=== PATIENT | female | born 1985 | race Two or more races ===

== ENCOUNTER 2024-01-19 16:18 | Emergency (ER) | payer BC, SELFPAY ==
[2024-01-19 16:23] VITALS: BP 144/92
[2024-01-19 16:33] VITALS: BP 110/77
[2024-01-19 17:00] VITALS: BP 103/75
--- NOTE | 2024-01-19 17:30 | ED.GENMED ---
History of Present Illness
General
Chief Complaint: Chest Pain
Time Seen by Provider: 01/19/24 17:13
History of Present Illness
History of Present Illness:
38-year-old female without any significant past medical history presenting for midsternal chest pain. Patient reports around 10 AM she was making breakfast and had episode of chest pain. Reports symptoms lasted about 10 minutes, described as a
pressure. She also reported some tingling to her right arm and right leg. Symptoms have since resolved. Denies any known history of heart problems or significant family history. Denies any history of PE, recent travel, recent surgery, exogenous
estrogen. Denies abdominal pain or GI symptoms. Denies additional acute medical complaints
Past History
Past History
ED Past Medical History: None
ED Past Surgical History: None
Social History
Tobacco: Non-smoker
Alcohol: None
Drug: None
Personal:
Living: with family
Phy Exam
Physical Exam
Physical Exam:
General: Well-appearing, no clinical signs of dehydration, nontoxic and in no acute distress
HEENT: protecting airway
Neck: appears supple
CV: Normal heart rate, regular rhythm, no evidence of cyanosis
Resp: No accessory muscle use, no increased work of breathing, lungs clear to auscultation bilaterally
Abd: Soft and non-distended, no tenderness to palpation,
Extremities: No deformities, no swelling
Neuro: alert, no focal neurologic deficit
: deferred
Rectal: deferred
Psych: Normal affect
Skin: Intact
Scores
Heart Score for Chest Pain Patients
STEMI patient?: No
History: Slightly or Non-Suspicious
ECG: Normal
Age: </= 45 years
Risk Factors: No Risk Factors
Troponin: </= Normal Limit
Heart Score for Chest Pain Patients: 0
Heart Score Risk: 2.5% MACE over next 6 weeks
Course
Orders/Labs/Results
Orders:
Orders
01/19/24 16:19
Electrocardiogram (*1) Urgent
Reason for Study: Chest Pain
EKG- Treatment ONCE
01/19/24 17:53
Complete Blood Count/With Diff Urgent
Comprehensive Metabolic Panel Urgent
D-Dimer Urgent
Troponin I Urgent
Abnormal Lab Results
01/19/24
17:53
Hct 36.6 L %
(37.0-47.0)
Creatinine 0.5 L mg/dL
(0.6-1.0)
01/19/24 17:53
01/19/24 17:53
Vital Signs
Initial and Last Documented VS:
Initial Vital Signs
Temp Pulse Resp BP Pulse Ox
98.1 F 83 18 144/92 100
01/19/24 16:23 01/19/24 16:23 01/19/24 16:23 01/19/24 16:23 01/19/24 16:23
Last Documented Vital Signs
Temp Pulse Resp BP Pulse Ox
98.1 F 78 17 99/64 97
01/19/24 16:23 01/19/24 18:55 01/19/24 18:55 01/19/24 18:00 01/19/24 18:55
MDM/Problems Addressed
MDM/Problems Addressed:
38-year-old female without significant past medical history presenting for episode of chest pain this morning. Vital signs on arrival are normal.
On exam patient is well-appearing, no acute distress or discomfort, presently asymptomatic. EKG reviewed, nonspecific T wave changes. Patient low risk for ACS overall low suspicion, absent significant risk factors. Will screen with laboratory
analysis including troponin. Patient does note that she had some dyspnea when symptoms came on, will add D-dimer. Patient afebrile, denies any cough or fever, without concern for pneumonia. Noted some tingling to the right side of her body at
onset of symptoms, no present neurologic findings on exam, without concern for central neurologic process.
18:45 - Labs are unremarkable. Reassessed patient remains hemodynamically stable and remains asymptomatic. At this time feel that she is stable for discharge with outpatient PCP follow-up. Return precautions discussed and patient verbalized
understanding
*EKG
Interpreted by ED Provider?: Yes
EKG Intrepretation Date: 01/19/24
EKG Intrepretation Time: 17:32
Interpretation: normal
Comparison EKG: no comparison EKG present
Heart Rate: 89
Rate: normal
Rhythm: sinus
[place]: normal axis
Interval: normal interval
QRS Pattern: normal QRS
Ischemia: non-specific ST changes
*Critical Care Note
Total Time (30-74mins, 75-104mins- exclusive of procedures): Not Applicable
ED Attending Note
-
Portions of this chart may have been created with voice recognition software.� Occasional wrong word or��sound alike� substitutions may have occurred due to the inherent limitations of voice recognition software.
Discharge Plan
Departure
Patient Disposition: Home (Routine Discharge)
Date of Disposition: 01/19/24
Time of Disposition: 18:45
Patient with high blood pressure during this ER visit?: No
Condition: Good
Discharge Problem:
Acute chest wall pain
Instructions: Chest Pain That Is Not Caused by the Heart (DC)
Prescriptions:
No Action
valacyclovir [Valtrex] 1,000 MG tablet
1,000 mg PO TID Qty: 20 0RF
Referrals:
Paloma Copeland DO [Family Provider] -
Activity Restrictions/Additional Instructions:
You were seen in the emergency department for chest pain
You were found to have normal EKG and laboratory analysis
Please follow-up closely with your primary care physician.
Return to the emergency department for any worsening of your symptoms, or any development of chest pain, difficulty breathing, abdominal pain with persistent vomiting and inability to tolerate food or liquid by mouth (concern for dehydration),
weakness, headache or confusion, fever greater than 100.4, or any additional symptoms that are concerning to you.
Thank you for choosing [facility].
Interventions
Interventions:
*Risk Screen - Suicide Last Done: 01/19/24 16:23
*General Assessment Last Done: 01/19/24 16:23
*Neglect/Abuse Screening Last Done: 01/19/24 16:23
ED- Fall Risk Assessment Last Done: 01/19/24 17:00
*ED COVID-19 Vaccine History Last Done: 01/19/24 16:23
*Nursing Disposition Last Done: 01/19/24 18:55
ED- Cardiac Assessment Last Done: 01/19/24 17:00
Discharge Date and Time
Discharge Date/Time: 01/19/24 18:55
Print Language: SWISS
[2024-01-19 18:00] VITALS: BP 99/64
[2024-01-19 18:12] LABS: % Basophils 0.4 % (0-2); % Eosinophils 1.6 % (0-6); % Immature Granulocytes 0.2 % (0-0.5); % Lymphocytes 27.7 % (20.5-51.1); % Monocytes 4.1 % (1.7-9.3); Absolute Eosinophils 0.1 10^3/uL (0-0.7); Absolute Lymphocytes 2.2 10^3/uL (1.2-3.4); Absolute Monocytes 0.3 10^3/uL (0.1-0.6); Absolute Neutrophils 5.3 10^3/uL (1.4-6.5); Hematocrit 36.6 % (37.0-47.0); Hemoglobin 12.7 g/dL (12.0-16.0); Mean Corp Hgb Conc. 34.7 g/dL (33.0-37.0); Mean Corpuscular Hgb 30.1 pg (27.0-31.0); Mean Corpuscular Volume 86.7 fL (81.0-99.0); Mean Platelet Volume 9.6 fL (7.4-10.4); Nucleated Red Blood Cells % 0 %; Platelet Count 300 10^3/uL (130-400); Red Blood Cell Count 4.22 10^6/uL (4.20-5.40); Red Cell Dist. Width 12.7 % (11.5-14.5); White Blood Cell Count 8.1 10^3/uL (4.8-10.8)
[2024-01-19 18:24] LABS: ALT (SGPT) 13 U/L (0-35); AST (SGOT) 20 U/L (14-36); Albumin 4.6 g/dl (3.5-5.0); Alkaline Phosphatase 52 U/L (38-126); Blood Urea Nitrogen 13 mg/dl (7-17); Calcium 9.5 mg/dl (8.4-10.2); Carbon Dioxide 27 mmol/L (22-30); Chloride 103 mmol/L (98-107); Glucose 85 mg/dl (70-99); Potassium 3.9 mmol/L (3.5-5.1); Sodium 140 mmol/L (135-145); Total Bilirubin 0.5 mg/dl (0.2-1.3); Total Protein 7.2 g/dl (6.3-8.2); eGFR > 60.00
[2024-01-19 18:32] LABS: D-Dimer < 0.27 ug/mlFEU (0.00-0.50)
[2024-01-19 18:35] LABS: Troponin I < 0.012 ng/ml
== END 2024-01-19 18:55 | disposition home or self-care (01) ==
LOC: EMR 16:18
PROVIDERS: EMERGENCY PHYSICIAN Student in an Organized Health Care Education/Training Program; FAMILY PHYSICIAN Family Medicine
DX: R07.89 Other chest pain (principal); R20.2 Paresthesia of skin
CPT/HCPCS: 99284; 80053; 84484; 85025; 85379; 93005

== ENCOUNTER → 2024-10-30 13:18 | Outpatient (REF) | payer BC, SELFPAY | LOC: RAD 13:18 | PROVIDERS: ATTENDING PHYSICIAN Nurse Practitioner Family | DX: R10.2 Pelvic and perineal pain (principal) | CPT/HCPCS: 76830; 76856 ==